=== PATIENT | male | born 1985 | race Caucasian/White ===

== ENCOUNTER 2021-09-22 14:58 | Emergency (ER) | payer MEDICAID ==
[2021-09-22 15:15] VITALS: BP 131/83; PULSE 74
[2021-09-22] MEDS ORDERED: Erythromycin Base 0.5% Ophth Oint 1 GM Tube EYEBOTH ONE (16:29)
== END 2021-09-22 16:48 | disposition home or self-care (01) ==
LOC: JP.ED 14:58
DX: S05.51XA Penetrating wound with foreign body of right eyeball, initial encounter (principal); H57.89 Other specified disorders of eye and adnexa; Z88.2 Allergy status to sulfonamides; Z87.891 Personal history of nicotine dependence; W26.8XXA Contact with other sharp object(s), not elsewhere classified, initial encounter; Y92.009 Unspecified place in unspecified non-institutional (private) residence as the place of occurrence of the external cause
CPT/HCPCS: 99283; A9270; 99281

== ENCOUNTER 2022-01-11 09:57 | Emergency (ER) | payer MEDICAID ==
[2022-01-11 10:10] VITALS: BP 142/82; PULSE 60
[2022-01-11] MEDS ORDERED: Sodium Chloride 0.9% 10 ML Syringe FLUSH PRN (10:42)
[2022-01-11] MEDS ORDERED: Sodium Chloride 0.9% 1,000 ML IV ONE (10:43)
== END 2022-01-11 11:57 | disposition home or self-care (01) ==
LOC: JP.ED 09:57
DX: T58.91XA Toxic effect of carbon monoxide from unspecified source, accidental (unintentional), initial encounter (principal); T73.3XXA Exhaustion due to excessive exertion, initial encounter; E86.0 Dehydration; Z91.030 Bee allergy status; Z88.2 Allergy status to sulfonamides; Z79.899 Other long term (current) drug therapy; Z87.891 Personal history of nicotine dependence
CPT/HCPCS: 36415; 82803; 85025; 96360; 99283; J3490; J7030